=== PATIENT | female | born 1965 | race Caucasian/White ===

== ENCOUNTER 2017-10-30 11:32 | Inpatient (IN) | payer MEDICARE, MEDICAID ==
[~2017-10-30] VITALS: Ht 157.5 cm; Wt 105.1 kg
[2017-10-30] MEDS ORDERED: LYRICA (11:55)
[2017-10-30] MEDS ORDERED: ATORVASTATIN PO (11:55)
[2017-10-30] MEDS ORDERED: SUBOXONE (11:56)
[2017-10-30] MEDS ORDERED: METFORMIN ×2 (11:56→11:57)
[2017-10-30] MEDS ORDERED: SOMA (11:57)
[2017-10-30] MEDS ORDERED: TOPAMAX (11:57)
[2017-10-30] MEDS ORDERED: POTASSIUM CHLORIDE (11:58)
[2017-10-30] MEDS ORDERED: ACETAMINOPHEN 500 MG TABLET PO ONE (12:00)
[2017-10-30 12:16] LABS: BASOPHILS # (AUTO) 0.04 x10^3/uL (0-0.1); BASOPHILS % (AUTO) 0 % (0-1); EOSINOPHILS # (AUTO) 0.18 x10^3/uL (0-0.4); EOSINOPHILS % (AUTO) 2 % (1-7); LYMPHOCYTES # (AUTO) 3.33 x10^3/uL (1-3.4); LYMPHOCYTES % (AUTO) 36 % (22-44); MD NO; MEAN CORPUSCULAR HEMOGLOBIN 26.8 pg (27.0-34.8); MEAN CORPUSCULAR HGB CONC 32.9 g/dL (32.4-35.8); MEAN CORPUSCULAR VOLUME 81.4 fL (80-100); MEAN PLATELET VOLUME 6.8 fL (7.4-10.4); MONOCYTES # (AUTO) 0.64 x10^3/uL (0.2-0.8); MONOCYTES % (AUTO) 7 % (2-9); NEUTROPHILS # (AUTO) 4.95 x10^3/uL (1.8-6.8); NEUTROPHILS % (AUTO) 54 % (42-75); PLATELET COUNT 406 x10^3/uL (130-400); RED BLOOD COUNT 5.78 x10^6/uL (3.82-5.3)
[2017-10-30] MEDS ORDERED: ACETAMINOPHEN 500 MG TABLET ONE (12:25)
[2017-10-30 12:29] LABS: ALBUMIN 3.6 g/dL (3.4-5.0); ANION GAP 8 mmol/L (5-15); CALCIUM 8.8 mg/dL (8.5-10.1); CHLORIDE 102 mmol/L (98-107); CREATININE 1.06 mg/dL (0.55-1.02)
[2017-10-30 12:32] LABS: TROPONIN I < 0.015 ng/mL (0.000-0.045)
[2017-10-30] MEDS ORDERED: [UNRECOGNIZED DRUG - REMARK] PO (12:32)
[2017-10-30] MEDS ORDERED: [UNRECOGNIZED DRUG - REMARK] PO (12:32)
[2017-10-30] MEDS ORDERED: POTASSIUM CHLORIDE 20 MEQ TAB.ER.PRT ONE (13:25)
[2017-10-30] MEDS ORDERED: POTASSIUM CHLORIDE 20 MEQ TAB.ER.PRT PO ONE (13:30)
[2017-10-30 14:11] LABS: CULTURE INDICATED? YES; MICROSCOPIC INDICATED
[2017-10-30 15:26] LABS: SALICYLATE LEVEL 2.3 mg/dL (2.8-20.0)
[2017-10-30 15:27] LABS: ACETAMINOPHEN < 2 mcg/mL (10-30)
[2017-10-30] MEDS ORDERED: CHARCOAL/AQUEOUS 25 GM/120 ML PO ONE (15:30)
[2017-10-30] MEDS ORDERED: FLUO40CA9 PO (15:54)
[2017-10-30] MEDS ORDERED: CLON1TAB4 PO (15:55)
[2017-10-30] MEDS ORDERED: METF500T17 PO (15:55)
[2017-10-30] MEDS ORDERED: CHLO25TA PO (15:56)
[2017-10-30] MEDS ORDERED: DULO30CA2 PO (15:57)
[2017-10-30] MEDS ORDERED: BREX2TAB PO (15:57)
[2017-10-30] MEDS ORDERED: CYCL-259 PO (15:58)
[2017-10-30 16:02] LABS: AMPHETAMINE SCREEN, URINE Negative (Negative); BARBITURATE SCREEN, URINE Negative (Negative); BENZODIAZEPINE SCREEN, URINE Negative (Negative); CANNABINOID SCREEN, URINE Negative (Negative); COCAINE SCREEN, URINE Negative (Negative); METHADONE SCREEN, URINE Negative (Negative); OPIATE SCREEN, URINE Negative (Negative)
[2017-10-30 16:04] VITALS: BP 116/72
[2017-10-30] MEDS ORDERED: GABA100C PO (16:12)
[2017-10-30] MEDS ORDERED: OXYM5TAB PO (16:13)
[2017-10-30] MEDS ORDERED: OXYM10TA19 PO (16:13)
[2017-10-30] MEDS ORDERED: DOCUSATE 100 MG CAPSULE PO PRN (17:00)
[2017-10-30] MEDS ORDERED: ACETAMINOPHEN 325 MG TABLET PO PRN (17:00)
[2017-10-30] MEDS ORDERED: ENALAPRILAT 1.25 MG/ML, 2ML IVPush PRN (17:00)
[2017-10-30] MEDS ORDERED: POLYETHYLENE GLYCOL 17 GM PACKET PO PRN (17:00)
[2017-10-30] MEDS ORDERED: BISACODYL 10 MG SUPP PR PRN (17:00)
[2017-10-30] MEDS ORDERED: hydrALAzine 20 MG/ML, 1ML IVPush PRN (17:00)
[2017-10-30 17:08] LABS: INTERNATIONAL NORMALIZED RATIO 1.03 (0.93-1.1); PROTHROMBIN TIME 10.7 Seconds (9.6-11.5)
[2017-10-30 17:11] LABS: ALBUMIN 3.6 g/dL (3.4-5.0); ANION GAP 10 mmol/L (5-15); CALCIUM 8.9 mg/dL (8.5-10.1); CHLORIDE 103 mmol/L (98-107); CREATININE 1.09 mg/dL (0.55-1.02)
[2017-10-30] MEDS ORDERED: BUPR1FIL3 SL (17:21)
[2017-10-30 17:24] LABS: HEMOGLOBIN A1C 6.3 % (4.2-6.3)
[2017-10-30] MEDS: INSULIN LISPRO 100 UNITS/ML, PEN SQ-INSULIN SCH ×2 (17:30→21:00)
[2017-10-30] MEDS ORDERED: DEXTROSE 4 GM TAB.CHEW PO PRN (17:30)
[2017-10-30] MEDS ORDERED: DEXTROSE 50%, 50ML SYRINGE IVPush PRN (17:30)
[2017-10-30] MEDS ORDERED: GLUCAGON 1 MG IM PRN (17:30)
[2017-10-30] MEDS ORDERED: PROCHLORPERAZINE 5 MG/ML, 2ML IV PRN (17:30)
[2017-10-30] MEDS: SODIUM CHLORIDE 0.9% 1,000 ML IV SCH (17:35)
[2017-10-30] MEDS ORDERED: POTASSIUM CHLORIDE 40 MEQ in SODIUM CHLORIDE 0.9% 500 ML IV ONE (18:30)
[2017-10-30 19:43] VITALS: BP 129/84
[2017-10-30] MEDS ORDERED: CEFDINIR 300 MG CAPSULE PO ONE (21:00)
[2017-10-30] MEDS: SODIUM CHLORIDE FLUSH 10ML SYR IVF SCH (21:57)
[2017-10-30 23:40] VITALS: BP 119/78
[2017-10-30 23:41] VITALS: BP 134/86
[2017-10-30 23:43] VITALS: BP 107/73
[2017-10-31] VITALS (9 sets, daily range): BP systolic 106–133; BP diastolic 68–98
[2017-10-31 06:05] LABS: BASOPHILS # (AUTO) 0.06 x10^3/uL (0-0.1); BASOPHILS % (AUTO) 1 % (0-1); EOSINOPHILS # (AUTO) 0.19 x10^3/uL (0-0.4); EOSINOPHILS % (AUTO) 2 % (1-7); LYMPHOCYTES # (AUTO) 3.11 x10^3/uL (1-3.4); LYMPHOCYTES % (AUTO) 32 % (22-44); MD NO; MEAN CORPUSCULAR HEMOGLOBIN 27.5 pg (27.0-34.8); MEAN CORPUSCULAR HGB CONC 32.9 g/dL (32.4-35.8); MEAN CORPUSCULAR VOLUME 83.4 fL (80-100); MEAN PLATELET VOLUME 6.9 fL (7.4-10.4); MONOCYTES # (AUTO) 0.86 x10^3/uL (0.2-0.8); MONOCYTES % (AUTO) 9 % (2-9); NEUTROPHILS # (AUTO) 5.39 x10^3/uL (1.8-6.8); NEUTROPHILS % (AUTO) 56 % (42-75); PLATELET COUNT 362 x10^3/uL (130-400); RED BLOOD COUNT 5.41 x10^6/uL (3.82-5.3); RED CELL DISTRIBUTION WIDTH 15.7 % (9.6-15.2)
[2017-10-31 06:21] LABS: CHLORIDE 103 mmol/L (98-107)
[2017-10-31 06:35] LABS: ALANINE AMINOTRANSFERASE 20 U/L (12-78); ALBUMIN 3.3 g/dL (3.4-5.0); ALKALINE PHOSPHATASE 120 U/L (45-117); ANION GAP 12 mmol/L (5-15); BILIRUBIN,TOTAL 0.3 mg/dL (0.2-1.0); CALCIUM 8.6 mg/dL (8.5-10.1); CHOL/HDL RATIO 3.8; CHOLESTEROL, TOTAL 107 mg/dL (140-239); CREATININE 0.98 mg/dL (0.55-1.02); HDL CHOL % 26 % (28-40); HDL CHOLESTEROL (DIRECT) 28 mg/dL (40-60); LDL CHOLESTEROL,CALCULATED 43 mg/dL (54-169); LDL/HDL RATIO 1.5 (0.5-3.0); TOTAL PROTEIN 7.4 g/dL (6.4-8.2); TRIGLYCERIDES 179 mg/dL (50-200); VLDL CHOLESTEROL 36 mg/dL (0-25)
[2017-10-31] MEDS ORDERED: CARI350T PO (06:42)
[2017-10-31] MEDS ORDERED: PREG200C PO (06:42)
[2017-10-31] MEDS ORDERED: POTASSIUM CHLORIDE 20 MEQ TAB.ER.PRT PO ONE ×2 (07:00→16:00)
[2017-10-31] MEDS: INSULIN LISPRO 100 UNITS/ML, PEN SQ-INSULIN SCH ×4 (07:00→21:00)
[2017-10-31] MEDS ORDERED: POTASSIUM CHLORIDE 40 MEQ in SODIUM CHLORIDE 0.9% 500 ML IV ONE (07:00)
[2017-10-31] MEDS ORDERED: SODIUM CHLORIDE 0.9%, 500ML IVBOLUS ONE (07:30)
[2017-10-31] MEDS: SODIUM CHLORIDE FLUSH 10ML SYR IVF SCH ×2 (07:42→21:00)
[2017-10-31] MEDS ORDERED: CEFTRIAXONE 1,000 MG in DEXTROSE 5% 50 ML IV SCH (08:00)
[2017-10-31] MEDS ORDERED: CEFTRIAXONE 1,000 MG IM SCH (09:00)
[2017-10-31] MEDS: SODIUM CHLORIDE 0.9% 1,000 ML IV SCH ×2 (09:07→15:41)
[2017-10-31] MEDS: HEPARIN 5,000 UNITS/ML, 1ML SQ SCH ×2 (10:59→18:09)
[2017-10-31] MEDS ORDERED: BUPRENORPHINE HCL/NALOXONE 8-2MG FILM SL SCH ×3 (13:00→21:00)
[2017-10-31] MEDS: BUPRENORPHINE HCL/NALOXONE 8-2MG FILM SL SCH ×2 (13:19→21:30)
[2017-10-31 14:11] LABS: ALBUMIN 3.3 g/dL (3.4-5.0); ANION GAP 8 mmol/L (5-15); CALCIUM 8.4 mg/dL (8.5-10.1); CHLORIDE 107 mmol/L (98-107); CREATININE 0.94 mg/dL (0.55-1.02)
[2017-10-31] MEDS: PREGABALIN 200 MG CAPSULE PO SCH ×2 (15:04→21:30)
[2017-10-31] MEDS: CARISOPRODOL 350 MG TABLET PO SCH (21:30)
[2017-11-01 00:52] VITALS: BP 119/71
[2017-11-01] MEDS: HEPARIN 5,000 UNITS/ML, 1ML SQ SCH ×3 (03:00→19:22)
[2017-11-01] MEDS: SODIUM CHLORIDE 0.9% 1,000 ML IV SCH ×3 (04:26→20:03)
[2017-11-01 06:39] VITALS: BP 98/64
[2017-11-01 07:00] LABS: ALBUMIN 2.9 g/dL (3.4-5.0); ANION GAP 6 mmol/L (5-15); CALCIUM 8.5 mg/dL (8.5-10.1); CHLORIDE 105 mmol/L (98-107)
[2017-11-01] MEDS: INSULIN LISPRO 100 UNITS/ML, PEN SQ-INSULIN SCH ×4 (07:00→20:03)
[2017-11-01] MEDS ORDERED: CEFTRIAXONE 1,000 MG in SODIUM CHLORIDE 0.9% 50 ML IV SCH (08:00)
[2017-11-01] MEDS: CARISOPRODOL 350 MG TABLET PO SCH ×2 (08:16→20:02)
[2017-11-01] MEDS: SODIUM CHLORIDE FLUSH 10ML SYR IVF SCH ×2 (08:16→21:00)
[2017-11-01] MEDS: DULOXETINE 30 MG CAPSULE.DR PO SCH (08:16)
[2017-11-01] MEDS: PREGABALIN 200 MG CAPSULE PO SCH ×4 (08:16→20:02)
[2017-11-01] MEDS: BUPRENORPHINE HCL/NALOXONE 8-2MG FILM SL SCH ×2 (08:16→20:02)
[2017-11-01] MEDS ORDERED: POTASSIUM CHLORIDE 20 MEQ TAB.ER.PRT PO ONE (09:00)
[2017-11-01 12:15] VITALS: BP 102/56
[2017-11-01 19:08] VITALS: BP 117/75
[2017-11-02] VITALS (7 sets, daily range): BP systolic 100–130; BP diastolic 63–87
[2017-11-02] MEDS: HEPARIN 5,000 UNITS/ML, 1ML SQ SCH ×3 (03:00→18:13)
[2017-11-02 05:51] LABS: CHLORIDE 106 mmol/L (98-107)
[2017-11-02 06:04] LABS: ALBUMIN 2.7 g/dL (3.4-5.0); ANION GAP 8 mmol/L (5-15); CREATININE 0.78 mg/dL (0.55-1.02)
[2017-11-02] MEDS ORDERED: POTASSIUM CHLORIDE 20 MEQ TAB.ER.PRT PO ONE (06:30)
[2017-11-02] MEDS: INSULIN LISPRO 100 UNITS/ML, PEN SQ-INSULIN SCH ×4 (07:00→20:03)
[2017-11-02] MEDS: SODIUM CHLORIDE 0.9% 1,000 ML IV SCH ×2 (08:38→21:15)
[2017-11-02] MEDS: PREGABALIN 200 MG CAPSULE PO SCH ×3 (08:43→20:03)
[2017-11-02] MEDS: DULOXETINE 30 MG CAPSULE.DR PO SCH (08:43)
[2017-11-02] MEDS: BUPRENORPHINE HCL/NALOXONE 8-2MG FILM SL SCH ×2 (08:43→20:02)
[2017-11-02] MEDS: CARISOPRODOL 350 MG TABLET PO SCH ×2 (08:43→20:03)
[2017-11-02] MEDS: SODIUM CHLORIDE FLUSH 10ML SYR IVF SCH ×2 (08:44→20:03)
[2017-11-03 01:07] VITALS: BP 103/67
[2017-11-03] MEDS: HEPARIN 5,000 UNITS/ML, 1ML SQ SCH ×3 (03:00→19:00)
[2017-11-03 06:11] LABS: ALBUMIN 2.6 g/dL (3.4-5.0); ANION GAP 3 mmol/L (5-15); CALCIUM 8.1 mg/dL (8.5-10.1); CHLORIDE 105 mmol/L (98-107)
[2017-11-03 06:13] LABS: CREATININE 0.64 mg/dL (0.55-1.02)
[2017-11-03] MEDS ORDERED: POTASSIUM CHLORIDE 20 MEQ TAB.ER.PRT PO ONE (07:00)
[2017-11-03] MEDS: INSULIN LISPRO 100 UNITS/ML, PEN SQ-INSULIN SCH ×4 (07:00→20:41)
[2017-11-03] MEDS: BUPRENORPHINE HCL/NALOXONE 8-2MG FILM SL SCH ×2 (08:08→20:49)
[2017-11-03] MEDS: PREGABALIN 200 MG CAPSULE PO SCH ×3 (08:08→20:49)
[2017-11-03] MEDS: SODIUM CHLORIDE FLUSH 10ML SYR IVF SCH ×2 (08:09→20:50)
[2017-11-03] MEDS: CARISOPRODOL 350 MG TABLET PO SCH ×2 (08:09→20:49)
[2017-11-03] MEDS: DULOXETINE 30 MG CAPSULE.DR PO SCH (08:09)
[2017-11-03 08:38] VITALS: BP 112/75
[2017-11-03] MEDS: SODIUM CHLORIDE 0.9% 1,000 ML IV SCH (10:57)
[2017-11-03 13:00] VITALS: BP 106/72
[2017-11-03 20:08] VITALS: BP 125/71
[2017-11-04 02:19] VITALS: BP 129/78
[2017-11-04] MEDS: HEPARIN 5,000 UNITS/ML, 1ML SQ SCH ×2 (03:00→11:00)
[2017-11-04 06:27] LABS: ALBUMIN 2.7 g/dL (3.4-5.0); ANION GAP 5 mmol/L (5-15); CALCIUM 8.3 mg/dL (8.5-10.1); CHLORIDE 104 mmol/L (98-107); CREATININE 0.69 mg/dL (0.55-1.02)
[2017-11-04 09:02] VITALS: BP 115/54
[2017-11-04] MEDS: BUPRENORPHINE HCL/NALOXONE 8-2MG FILM SL SCH (09:17)
[2017-11-04] MEDS: DULOXETINE 30 MG CAPSULE.DR PO SCH (09:17)
[2017-11-04] MEDS: PREGABALIN 200 MG CAPSULE PO SCH ×2 (09:17→16:54)
[2017-11-04] MEDS: CARISOPRODOL 350 MG TABLET PO SCH (09:17)
[2017-11-04] MEDS: INSULIN LISPRO 100 UNITS/ML, PEN SQ-INSULIN SCH ×3 (09:17→16:49)
[2017-11-04 13:07] VITALS: BP 105/71
== END 2017-11-04 18:22 | DRG 917 ==
LOC: ED 13:08 → EDIP 15:20 → 4WST 15:54 → 3E 11-04 17:47
PROVIDERS: ADMIT Hospitalist; ATTEND Hospitalist
DX: T50.2X2A Poisoning by carbonic-anhydrase inhibitors, benzothiadiazides and other diuretics, intentional self-harm, initial encounter (principal); N17.0 Acute kidney failure with tubular necrosis; N39.0 Urinary tract infection, site not specified; F32.9 Major depressive disorder, single episode, unspecified; F41.9 Anxiety disorder, unspecified; E87.6 Hypokalemia; I10 Essential (primary) hypertension; Z83.3 Family history of diabetes mellitus; Z90.710 Acquired absence of both cervix and uterus; Z90.49 Acquired absence of other specified parts of digestive tract; Y92.89 Other specified places as the place of occurrence of the external cause; Z88.8 Allergy status to other drugs, medicaments and biological substances; D47.3 Essential (hemorrhagic) thrombocythemia; M79.601 Pain in right arm; G89.29 Other chronic pain; G43.909 Migraine, unspecified, not intractable, without status migrainosus
CPT/HCPCS: 36415; 71045; 74018; 80048; 80053; 80061; 80307; 80329; 81001; 82040; 82962; 83036; 83735; 83880; 84100; 84443; 84484; 85025; 85610; 87040; 87086; 93005; 99285; G0378; J0696; J3480; G0480; J7030; J7040

== ENCOUNTER 2017-11-04 11:19 | Inpatient (IN) | payer MEDICARE, MEDICAID ==
[~2017-11-04] VITALS: Ht 157.5 cm; Wt 109.1 kg
[~2017-11-04 11:19] MED LIST: ATORVASTATIN PO; BREX2TAB PO; BUPR1FIL3 SL; CARI350T PO; CHLO25TA PO; CLON1TAB4 PO; CYCL-259 PO; DULO30CA2 PO; FLUO40CA9 PO; GABA100C PO; LYRICA; METF500T17 PO; METFORMIN; OXYM10TA19 PO; OXYM5TAB PO; POTASSIUM CHLORIDE; PREG200C PO; SOMA; SUBOXONE; TOPAMAX; [UNRECOGNIZED DRUG - REMARK] PO; [UNRECOGNIZED DRUG - REMARK] PO
[2017-11-04 18:30] VITALS: BP 144/90
[2017-11-04] MEDS ORDERED: DOCUSATE 100 MG CAPSULE PO PRN (18:30)
[2017-11-04] MEDS ORDERED: POLYETHYLENE GLYCOL 17 GM PACKET PO PRN (18:30)
[2017-11-04] MEDS ORDERED: ONDANSETRON ODT 4 MG PO PRN (18:30)
[2017-11-04] MEDS ORDERED: BISACODYL 10 MG SUPP PR PRN (18:30)
[2017-11-04 18:31] VITALS: BP 127/83
[2017-11-04 18:32] VITALS: BP_SYST 114; BP_SYST 144; BP_DIAS 80; BP_DIAS 90
[2017-11-04 19:46] LABS: HCT (SEDRATE) 38.5 % (34.6-47.8)
[2017-11-04 20:08] LABS: FOLATE LEVEL 5.5 ng/mL (3.1-17.5); FREE T4 (FREE THYROXINE) 0.93 ng/dL (0.76-1.46); THYROID STIMULATING HORMONE 2.86 mIU/L (0.358-3.740)
[2017-11-04 20:35] LABS: CHOL/HDL RATIO 4.7; LDL/HDL RATIO 2.5 (0.5-3.0)
[2017-11-04] MEDS: CARISOPRODOL 350 MG TABLET PO SCH ×2 (21:18→22:31)
[2017-11-04] MEDS: BUPRENORPHINE/NALOXONE 8-2MG SL SCH (21:18)
[2017-11-04] MEDS: PREGABALIN 200 MG CAPSULE PO SCH (21:18)
[2017-11-04] MEDS: ACETAMINOPHEN 325 MG TABLET PO PRN (22:30)
[2017-11-05 07:41] VITALS: BP 116/74
[2017-11-05] MEDS: PREGABALIN 200 MG CAPSULE PO SCH ×3 (09:36→20:28)
[2017-11-05] MEDS: BUPRENORPHINE/NALOXONE 8-2MG SL SCH ×2 (09:37→20:28)
[2017-11-05] MEDS: DULOXETINE 30 MG CAPSULE.DR PO SCH (13:49)
[2017-11-05] MEDS: FLUOXETINE HCL 20 MG CAPSULE PO SCH (13:49)
[2017-11-05 19:34] VITALS: BP 112/71
[2017-11-05] MEDS: CARISOPRODOL 350 MG TABLET PO SCH (20:28)
[2017-11-05] MEDS: ACETAMINOPHEN 325 MG TABLET PO PRN (21:11)
[2017-11-06] MEDS: KETOROLAC 10MG TABLET PO PRN ×3 (00:19→16:11)
[2017-11-06 07:30] VITALS: BP 115/74
[2017-11-06] MEDS: BUPRENORPHINE/NALOXONE 8-2MG SL SCH ×2 (08:41→20:14)
[2017-11-06] MEDS: FLUOXETINE HCL 20 MG CAPSULE PO SCH (08:41)
[2017-11-06] MEDS: DULOXETINE 30 MG CAPSULE.DR PO SCH (08:41)
[2017-11-06] MEDS: PREGABALIN 200 MG CAPSULE PO SCH ×3 (08:41→20:14)
[2017-11-06] MEDS: CARISOPRODOL 350 MG TABLET PO SCH ×2 (08:41→20:14)
[2017-11-06 19:32] VITALS: BP 113/72
[2017-11-07 07:55] VITALS: BP 108/72
[2017-11-07] MEDS: FOLIC ACID 1 MG TABLET PO SCH (09:46)
[2017-11-07] MEDS: DULOXETINE 30 MG CAPSULE.DR PO SCH (09:46)
[2017-11-07] MEDS: BUPRENORPHINE/NALOXONE 8-2MG SL SCH ×2 (09:47→20:27)
[2017-11-07] MEDS: PREGABALIN 200 MG CAPSULE PO SCH ×3 (09:47→20:27)
[2017-11-07] MEDS: FLUOXETINE HCL 20 MG CAPSULE PO SCH (09:47)
[2017-11-07] MEDS: CARISOPRODOL 350 MG TABLET PO SCH ×2 (09:47→20:27)
[2017-11-07] MEDS: KETOROLAC 10MG TABLET PO PRN ×2 (09:55→19:15)
[2017-11-07 19:44] VITALS: BP 123/76
[2017-11-08] MEDS: KETOROLAC 10MG TABLET PO PRN ×3 (02:44→22:03)
[2017-11-08 07:44] VITALS: BP 128/83
[2017-11-08] MEDS: PREGABALIN 200 MG CAPSULE PO SCH ×3 (08:49→22:03)
[2017-11-08] MEDS: FOLIC ACID 1 MG TABLET PO SCH (08:49)
[2017-11-08] MEDS: DULOXETINE 30 MG CAPSULE.DR PO SCH (08:49)
[2017-11-08] MEDS: CARISOPRODOL 350 MG TABLET PO SCH ×2 (08:50→22:03)
[2017-11-08] MEDS: FLUOXETINE HCL 20 MG CAPSULE PO SCH (08:50)
[2017-11-08] MEDS: BUPRENORPHINE/NALOXONE 8-2MG SL SCH ×2 (08:50→22:03)
[2017-11-08 19:58] VITALS: BP 124/72
[2017-11-09 07:44] VITALS: BP 95/60
[2017-11-09] MEDS: KETOROLAC 10MG TABLET PO PRN ×2 (07:49→19:23)
[2017-11-09] MEDS: DULOXETINE 30 MG CAPSULE.DR PO SCH (08:24)
[2017-11-09] MEDS: CARISOPRODOL 350 MG TABLET PO SCH ×2 (08:24→20:36)
[2017-11-09] MEDS: FOLIC ACID 1 MG TABLET PO SCH (08:24)
[2017-11-09] MEDS: PREGABALIN 200 MG CAPSULE PO SCH ×3 (08:24→20:36)
[2017-11-09] MEDS: BUPRENORPHINE/NALOXONE 8-2MG SL SCH ×2 (08:24→20:36)
[2017-11-09] MEDS: FLUOXETINE HCL 20 MG CAPSULE PO SCH (08:24)
[2017-11-09] MEDS ORDERED: DULO30CA2 PO (12:27)
[2017-11-09] MEDS ORDERED: FLUO20CA8 PO (12:27)
[2017-11-09 19:43] VITALS: BP 122/76
[2017-11-10] MEDS: ACETAMINOPHEN 325 MG TABLET PO PRN (01:27)
[2017-11-10] MEDS: KETOROLAC 10MG TABLET PO PRN ×2 (01:27→07:41)
[2017-11-10 07:45] VITALS: BP 124/81
[2017-11-10] MEDS: FOLIC ACID 1 MG TABLET PO SCH (08:52)
[2017-11-10] MEDS: DULOXETINE 30 MG CAPSULE.DR PO SCH (08:52)
[2017-11-10] MEDS: PREGABALIN 200 MG CAPSULE PO SCH (08:53)
[2017-11-10] MEDS: FLUOXETINE HCL 20 MG CAPSULE PO SCH (08:53)
[2017-11-10] MEDS: CARISOPRODOL 350 MG TABLET PO SCH (08:53)
[2017-11-10] MEDS: BUPRENORPHINE/NALOXONE 8-2MG SL SCH (08:53)
[2017-11-10] MEDS ORDERED: FOLI-17 PO (10:37)
== END 2017-11-10 12:47 | disposition home or self-care (01) | DRG 918 ==
LOC: 3E 18:01
PROVIDERS: ADMIT Counselor Mental Health; ATTEND Counselor Mental Health
DX: T46.5X2A Poisoning by other antihypertensive drugs, intentional self-harm, initial encounter (principal); F33.40 Major depressive disorder, recurrent, in remission, unspecified; Z88.5 Allergy status to narcotic agent; F43.20 Adjustment disorder, unspecified; Z79.84 Long term (current) use of oral hypoglycemic drugs; Z79.899 Other long term (current) drug therapy; Z79.1 Long term (current) use of non-steroidal anti-inflammatories (NSAID); Z83.3 Family history of diabetes mellitus; Y92.89 Other specified places as the place of occurrence of the external cause
CPT/HCPCS: 36415; 80061; 82607; 82746; 84439; 84443; 85651; 86592; 92523-GN